=== PATIENT | female | born 1965 | race Native Hawaiian/Other Pacific Islander ===

== ENCOUNTER 2017-04-23 07:48 | Outpatient (CLI) | payer OTHER | END 2017-04-23 07:57 | disposition short-term general hospital (02) | LOC: AMB 07:48 | DX: R06.02 Shortness of breath (principal) | CPT/HCPCS: A0425; A0427 ==

== ENCOUNTER 2017-04-23 07:57 | Emergency (ER) | payer OTHER ==
[~2017-04-23] VITALS: Ht 162.6 cm; Wt 45.4 kg
[2017-04-23 08:00] VITALS: TEMP 97.3
[2017-04-23 08:48] LABS: PLATELET COUNT 209 K/uL (152-353)
[2017-04-23 09:14] LABS: POTASSIUM 3.8 mmol/L (3.6-5.2); SODIUM 140 mmol/L (136-145)
[2017-04-23 12:05] VITALS: BP 147/81
== END 2017-04-23 12:05 | disposition home or self-care (01) ==
LOC: ED 07:57
PROVIDERS: Family Medicine
DX: J44.1 Chronic obstructive pulmonary disease with (acute) exacerbation (principal)
CPT/HCPCS: 36415; 80053; 82550; 84484; 85027; 87804; 93005; 94664; 96374; 96375; 99284; J1885; J2930

== ENCOUNTER 2017-07-20 09:55 | Inpatient (IN) | payer OTHER ==
[2017-07-20] VITALS (15 sets, daily range): BP systolic 118–169; BP diastolic 70–101; TEMP 97.5–99.6; Ht 162.6 cm; Wt 52.8 kg
[~2017-07-20] VITALS: Ht 162.6 cm; Wt 52.8 kg
[2017-07-20 10:43] LABS: PLATELET COUNT 392 K/uL (152-353)
[2017-07-20 10:47] LABS: POTASSIUM 2.7 mmol/L (3.6-5.2)
--- NOTE | 2017-07-20 12:46 | NUR ---
REPORT RECEIVED FROM Sabrina CROCKER RN IN ED
--- NOTE | 2017-07-20 12:50 | NUR ---
PT ARRIVED VIA STRETCHER AT THIS TIME. PT IS AWAKE, ALERT, AND ORIENTED X4. PT IS IN NO DISTRESS. PT WAS ORIENTED TO ROOM, CALL LIGHT AND ICU RULES. THERE IS A 22G IV TO THE RAC THAT IS PATENT AND INTACT. ADMISSION ASSESSMENT WAS DONE AT THIS TIME CHARTED. PT WAS PLACED ON ICU MONITORS AND BED WAS LOOCKED AND IN LOWEST POSITION. WILL CONTINUE TO CLOSELY MONITOR.
--- NOTE | 2017-07-20 16:50 | NUR ---
PT STATES SHE IS REALLY ANXIOUS AT THIS TIME AND HAVING TROUBLE BREATHING. RT AT BEDSIDE. BRAD MENDOZA NOTIFIED AND ATIVAN 1 MG IV ORDERED AT THIS TIME. RT CHANGED PT'S OXYGEN TO VENTI-MASK 35% FIO2
--- NOTE | 2017-07-20 22:06 | NUR ---
PT AWAKE IN POSITION OF COMFORT, DENIES ANY NEEDS AT THIS TIME, IV INTACT WITH FLUID ONGOING, VENTI MASK IN USE, NET SOLUTIONS ARCHITECT IN USE, NO S/S OF PAIN OR ACUTE DISTRESS. ADX NIGHTLY MEDICATION SEEN ON APR, WILL MONITOR, RAILS UP, BED IN LOW POSITION, ENCOURAGED TO CALL NEEDED. PT EDUCATED ABOUT THE NEED FOR URINE SAMPLE FOR UA, ALSO CLINICAL SPECIALIST MEDICAL DEVICE ANSWERED SOME QUESTIONS PT HAD ABOUT HER CURRENT PLAN OF CARE.
--- NOTE | 2017-07-20 23:56 | NUR ---
PT AWAKE WITH NO ACUTE DISTRESS NOTED, JUST USED BSC WITH SOME WEAKNESS AND SOB NOTED DUE TO EXERTION/ACTIVITY, RESP RATE 26, 22G IV INTACT TO R AC WITH NS INFUSING AT 125ML/HR, C/O COUGH AND REQUESTS SOMETHING FOR IT. DIRECTOR RECORDS MANAGEMENT DOES NOTE A VERY FREQUENT COUGH AT THIS TIME THAT IS PRODUCTIVE AT TIMES. ADX TUSSINEX 5ML PO PRN FOR COUGH. PAYLOADER MACHINE OPERATOR IN USE, VITALS BEING MONITORED, WILL MONITOR CLOSELY, RAILS UP, BED IN LOW POSITION. PT COLLECTED UA VIA CLEAN CATCH, APPROX 40ML CLEAR YELLOW URINE SENT TO LAB FOR UA PER ORDERS.
[2017-07-21] VITALS (23 sets, daily range): BP systolic 125–1476; BP diastolic 69–107; TEMP 97.7–98.7
--- NOTE | 2017-07-21 02:00 | NUR ---
PT RESTING IN POSITION OF COMFORT WITH EYES CLOSED AND HOB ELEVATED, NO S/S OF PAIN OR DISTRESS NOTED, RESP RATE 24 NONLABORED, VENTI MASK IN USE WITH FIO2 OF 35% AND O2 SAT OF 98%, 22G IV INTACT TO R AC WITH NS INFUSING AT 125ML/HR, NO COUGHING NOTED AT THIS TIME, LABORER ELECTROPLATING IN USE, VITALS BEING MONITORED, WILL MONITOR CLOSELY, RAILS UP, BED IN LOW POSITION.
--- NOTE | 2017-07-21 04:10 | NUR ---
RESTING WITH EYES CLOSED, NO S/S OF PAIN OR DISTRESS NOTED, IV INTACT WITH FLUID ONGOING, RESP RATE NONLABORED, VENTI MASK IN USE WITH FIO22 OF 35%, RESP RATE 22-24, INTEGRATION TECHNICIAN IN USE, VITALS BEING MONITORED, WILL MONITOR CLOSELY, RAILS UP, BED IN LOW POSITION.
--- NOTE | 2017-07-21 05:30 | NUR ---
PT STATES SHE IS FEELING TIGHT AND SHE HAS STARTED TO COUGH ALOT, REQUESTING A BREATHING TREATMENT. SPOKE WITH DR. SWIFT IN ER. CHANGE DUO NEB TREATMENTS TO Q 4 HOURS AND PRN. T. O. R& V DR. SWIFT/[place] HARDEN RN. 0645 PT GOT NEB TREATMENT AND STATES SHE IS FEELING BETTER, NO DISTRESS NOTED. IV INTACT, FLUID ONGOING, NO DISTRESS NOTED, WILL MONITOR, RAILS UP, BED IN LOW POSITION, VENTI MASK IN USE.
[2017-07-21 06:07] LABS: POTASSIUM 3.8 mmol/L (3.6-5.2)
[2017-07-21 06:19] LABS: PLATELET COUNT 343 K/uL (152-353)
--- NOTE | 2017-07-21 09:42 | NUR ---
LUIS MIGUEL WU, ASSOCIATE BROKER AT BEDSIDE ROUNDING ON PT. NO NEW ORDERS GIVEN AT THIS TIME
--- NOTE | 2017-07-21 11:05 | NUR ---
PT RESTING QUIETLY WITH EYES CLOSED. NAD NOTED. WILL CONTINUE TO MONITOR.
--- NOTE | 2017-07-21 11:22 | NUR ---
RESPIRATORY AT BEDSIDE GIVING SCHEDULED BREATHING TX
--- NOTE | 2017-07-21 12:35 | NUR ---
PT SWITCHED TO NC 3LPM. SATS 93% WILL CONTINUE TO MONITOR.
--- NOTE | 2017-07-21 13:05 | NUR ---
PT SITTING UP IN BED AWAKE AND ALERT WATCHING TV. NO DISTRESS NOTED. PT'S O2 SAT IS 97% ON 3 LPM VIA NC AT THIS TIME. PT VOICES NO COMPLAINTS. WILL CONTINUE TO MONITOR.
--- NOTE | 2017-07-21 14:03 | NUR ---
DECREASED O2 TO 2LPM VIA NC. O2 SAT 99% AT THIS TIME AND NO DISTRESS NOTED.
--- NOTE | 2017-07-21 22:00 | NUR ---
AWAKE WATCHING TV WITH NO S/S OF PAIN OR DISTRESS NOTED, RESP RATE NONLABORED, PRODUCTIVE COUGH NOTED AT TIMES, VENTI MASK IN USE WITH FIO2 OF 35%, SKIN WARM AND DRY, RADIAL PULSES INTACT, 22G IV INTACT TO R AC WITH NO PROBLEMS NOTED, ENTERPRISE SECURITY ARCHITECT IN USE, VITAL BEING MONITORED, PT DENIES ANY PROBLEMS AT THIS TIME, RAILS UP, BED IN LOW POSITION. PT UP TO BSC TO URINATE, NOTE PT BECOMES VERY SOB WITH ACTIVITY, PT NOW BACK IN BED.
[2017-07-22] VITALS (23 sets, daily range): BP systolic 125–177; BP diastolic 70–99; TEMP 98–98.7
--- NOTE | 2017-07-22 00:26 | NUR ---
PT AWAKE WATCHING TV WITH NO DISTRESS NOTED, DENIES ANY NEEDS, RESP RATE 20-22 NONLABORED, IV LOCK INTACT TO R AC WITH NO PROBLEMS NOTED, VENTI MASK IN USE, SERVICE GREETER IN USE, VITALS BEING MONITORED, RAILS UP, BED IN LOW POSITION.
--- NOTE | 2017-07-22 02:04 | NUR ---
RESTING QUIETLY IN BED WITH EYES CLOSED, NO S/S OF PAIN OR DISTRESS NOTED, 22G IV INTACT TO R AC WITH NO PROBLEMS NOTED TO SITE, VENTI MASK IN USE, RESP RATE NONLABORED, GEODETIC COMPUTATOR IN USE, VITALS BEING MONITORED, WILL CONTINUE TO MONITOR CLOSELY, RAILS UP, BED IN LOW POSITION.
--- NOTE | 2017-07-22 03:24 | NUR ---
PT AWAKE SITTING UP IN BED IN TRIPOD POSITION, PT HAD COUGHING SPELL AND C/O BEING VERY SORE FROM COUGHING. BREATHTING MODERATLY LABORED DURING AND AFTER COUGHING SPELL. PT STATES SHE IS NOT REALLY COUGHING ANYTHING UP NOW. ENCOURAGED PT TO DRINK WATER TO THIN SPUTUM, PT ACKNOWLEDGES UNDERSTANDING. O2 SAT 95-93% ON VENTI MASK WITH FIO2 OF 35%.
--- NOTE | 2017-07-22 03:40 | NUR ---
SPOKE WITH DR. URENA ON PHONE ABOUT PT'S CONTINUED COUGHING SPELL AND ABOUT HER BEING SORE IN CHEST FROM COUGHING. NEW ORDER FOR MORPHINE 1 MG IVP Q 4 PRN FOR AIR HUNGER. T.O. R&V DR. URENA/JEN KISER.
--- NOTE | 2017-07-22 04:11 | NUR ---
RESP RATE 24-26 WITH INCREASED RESPIRATORY EFFORT ALONG WITH COUGHING SPELL. PT C/O BEING SORE OVER RIBS/UPPER ABD, STATES SORENESS IS INTERMITTEN AND CAUSED BY HER COUGHING. O2 SAT 96% VENTI MASK IN USE. GIVEN MORPHINE 1MG IVP PRN AT THIS TIME, SKIN WARM AND DRY, RADIAL PULSES INTACT, 22G IV LOCK INTACT TO R AC WITH NO PROBLEMS NOTED TO SITE. 0418 PT APPEARS TO BE IN LESS DISTRESS SINCE ADX OF MORPHINE PRN. RESP RATE NONLABORED AND NO COUGHING NOTED, PT DOES STATE SHE FEELS BETTER AND THAT THE SORENESS FROM COUGHING IS NOW "JUST SORE", VERY LITTLE EXTRA RESP EFFORT NOTED COMPARED TO BEFORE THE MORPHINE WAS GIVEN. PT NOW WATCHING TV AND DENIES ANY NEEDS, RAILS UP, BED IN LOW POSITION. VENTI MASK IN USE WITH FIO2 OF 35% AND O2 SAT OF 98%. VITALS BEING MONITORED
[2017-07-22 07:46] LABS: POTASSIUM 2.7 mmol/L (3.6-5.2)
[2017-07-22 08:37] LABS: PLATELET COUNT 374 K/uL (152-353)
--- NOTE | 2017-07-22 08:40 | NUR ---
SET UP BREAKFAST TRAY AND PROVIDED WARM CLOTH TO WASH OFF FACE AND HANDS.
--- NOTE | 2017-07-22 09:30 | NUR ---
UP TO BEDSIDE COMMODE. ASSISTED WITH PARTIAL BATH AT THIS TIME.
--- NOTE | 2017-07-22 10:02 | NUR ---
RUBIA MENDOZAP AT BEDSIDE TO EXAMINE PATIENT. ABNORMAL LABS REPORTED.
--- NOTE | 2017-07-22 13:38 | NUR ---
PT RESTING IN BED HOB UP SLEEPING RESP RATE 22 SAT 97% BREATHING EASIER NOW, PT SLEEPING, SLEPT THROUGH LUNCH WILL FEED PT WHEN SHE AWAKENS.
--- NOTE | 2017-07-22 14:20 | NUR ---
WOKE UP AND REQUESTED A HAM AND CHEESE SANDWICH AND SWEET TEA. CAFETERIA NOTIFIED.
--- NOTE | 2017-07-22 16:55 | NUR ---
BRUSHED AND BRAIDED PATIENTS HAIR. (HAIR CLIP WAS HURTING SO I OFFERED TO BRAID HER HAIR) MICHAEL JALLOH CHANGED D/T STRESS INCONTIENCE. STANDING AT SIDE OF BED AND BEGAN COUGHING. DIFFICULTY TOLERATING ACTIVITY NOTED. CURRENTLY ON 3L VIA NC AND SLOW TO RAISE O2 SATS TO 92% FROM 83% RESPIRATORY ATTEMPTED TO PLACE BACK ON VENTI MASK FOR A FEW MINUTES BUT SHE REFUSED AND STATES, "I AM OK AND STARTING TO CALM DOWN."
--- NOTE | 2017-07-22 18:00 | NUR ---
DINNER TRAY TAKEN TO BEDSIDE. REFUSED TO EAT AT THIS TIME. ASKED ONLY TO KEEP THE FRUIT AND TEA FROM SUPPER TRAY. HAS 1/2 A HAM AND CHEESE SANDWICH AND PLANS TO EAT IT LATER THIS EVENING.
--- NOTE | 2017-07-22 22:32 | NUR ---
ATIVAN IV WAS EFFECTIVE. PT HAS BEEN RESTING WITH HER EYES CLOSED SINCE ADM OF MEDICATION. O2 SATS ARE 99 AND 100 PERCENT. COUGHING SUBSIDED AT PRESENT.
[2017-07-23] VITALS (20 sets, daily range): BP systolic 132–177; BP diastolic 70–101; TEMP 98.1–98.7
--- NOTE | 2017-07-23 02:57 | NUR ---
PT CONTINUES TO REST WITH EYES CLOSED. PT WITH DECREASE IN COUGHING. RESP ARE EVEN AND UNLABORED. O2 SATS 99 TO 100 PERCENT WITH 02 AT 3L NASAL CANNULA.
--- NOTE | 2017-07-23 07:00 | NUR ---
REPORT FROM PM STAFF. PT WITH DRY HACKY COUGH. PT A&O X 4.COLOR PINK,O2 SATS 99% ON O2 AT 3L/NC.
[2017-07-23 08:04] LABS: PLATELET COUNT 479 K/uL (152-353)
--- NOTE | 2017-07-23 08:26 | NUR ---
PT WITH INCREASED COUGHING,CHEST SOUNDS 'TIGHT' AFTER A HHN TX PER RT.HR 115. PT MEDICATED WITH MUCINEX & TUSSIONEX PER 'S ORDER.
--- NOTE | 2017-07-23 09:30 | NUR ---
PT RESTING WITH EYES CLOSED.HR DOWN TO 81,NSR. MUCH LESS COUGHING .
--- NOTE | 2017-07-23 11:48 | NUR ---
PT C/O ACHES ALL OVER, PT WITH DRY HARSH TIGHT SOUNDING COUGH REPORTED TO XANDER AVINA/DISHA/HOSPITALIST.
--- NOTE | 2017-07-23 12:37 | NUR ---
PT MENTIONED 'ALL OVER ACHES''FROM COUGHING' PER PT. REPORTED TO LUIS MIGUEL BARKLEYP.
--- NOTE | 2017-07-23 14:40 | NUR ---
PT MEDICATED WITH TORADOL 30MG IV FOR ACHES & PAINS
--- NOTE | 2017-07-23 15:55 | NUR ---
PT CONCERNED ABOUT HER FINANCIAL STATUS.'UNABLE TO PAY' FOR HER MEDS. JUD JURADO PRACTICE PROFESSIONAL IN TO SEE PT.PT RESTING IN [place], WATCHING TV. PT WITH 'TIGHT' SOUNDING COUGH AT INTERVALS. MUCH IMPROVED SINCE THIS AM.
--- NOTE | 2017-07-23 17:30 | NUR ---
PT RESTING IN HF,FEEDING DINNER SLOWLY & WATCHING TV. PT CONTINUES TO COUGH AT INTERVALS.
--- NOTE | 2017-07-23 20:02 | NUR ---
PT AWAKE AND ORIENTED SITTING UP IN BED WATCHING TV, DENIES ANY PAIN OR PROBLEMS, NO S/S OF DISTRESS NOTED, IV LOCK INTACT TO R AC, RESP RATE NONLABORED, O2 AT 2LPM VIA NC, CONDUCTOR/ENGINEER IN USE, VITALS BEING MONITORED, LUNGS DIMINISHED TO AUSCULTATION, BS+, RADIAL AND PEDAL PULSES INTACT/EQUAL, WILL CONTINUE TO MONITOR CLOSELY, RAILS UP X3, BED IN LOW POSITION.
--- NOTE | 2017-07-23 22:20 | NUR ---
PT CONTINUES TO WATCH TV WITH NO DISTRESS NOTED, IV LOCK INTACT, RESP RATE NONLABORED, O2 IN USE, VITALS BEING MONITORED, PARTS INSPECTOR IN USE. ASSISTED PT TO WASH HER BACK. PT ALSO GOT UP TO BSC WITH SOME SOB NOTED, WILL MONITOR, RAILS UP, BED IN LOW POSITION.
[2017-07-24] VITALS (16 sets, daily range): BP systolic 131–173; BP diastolic 75–100; TEMP 98–98.3
--- NOTE | 2017-07-24 00:27 | NUR ---
PT AWAKE WATCHING TV WITH NO S/S OF DISTRESS NOTED, IV LOCK INTACT TO R AC, RESP RATE NONLABORED, NONPRODUCTIVE COUGH NOTED AT TIMES, O2 IN USE, BAKING FACTORY WORKER IN USE, VITALS BEING MONITORED, WILL MONITOR CLOSELY, RAILS UP, BED IN LOW POSITION.
--- NOTE | 2017-07-24 03:00 | NUR ---
PT AWAKE AND COUGHING ALOT, STATES THE COUGH IS "DRY" AND THAT SHE IS STILL SORE OVER HER RIBS/ABD FROM COUGHING. GAVE TUSSINEX 5ML PO PRN PER PT REQUEST FOR HER COUGH, WILL MONITOR CLOSELY. 02 SAT 99% ON 3LPM VIA NC.
--- NOTE | 2017-07-24 03:48 | NUR ---
RESTING WITH EYES CLOSED AND NO COUGHING OR DISTRESS NOTED, WILL MONITOR.
--- NOTE | 2017-07-24 04:26 | NUR ---
PT NOW AWAKE AND ORIENTED SITTING UP IN BED WATCHING TV, DENIES ANY NEEDS AT THIS TIME, RESP RATE 20 NONLABORED, O2 AT 3LPM VIA NC, SAFETY BELT INSTALLER IN USE, VITALS BEING MONITORED, NO S/S OF PAIN OR DISTRESS NOTED, 22G IV LOCK INTACT TO R AC WITH NO PROBLEMS NOTED TO SITE, WILL MONITOR, RAILS UP, BED IN LOW POSITION. NO COUGHING NOTED AT THIS TIME.
--- NOTE | 2017-07-24 06:29 | NUR ---
PT RESTING IN BED WITH EYES CLOSED AND NO S/S OF PAIN OR DISTRESS NOTED, IV LOCK INTACT, O2 AT 3LPM VIA NC, RESP RATE NONLABORED, RISK ADJUSTMENT SPECIALIST IN USE, VITALS BEING MONITORED, WILL MONITOR CLOSELY, RAILS UP, BED IN LOW POSITION.
[2017-07-24 06:33] LABS: PLATELET COUNT 437 K/uL (152-353)
--- NOTE | 2017-07-24 07:05 | NUR ---
REPORT FROM [place] HARDEN RN PM SHIFT. PT RESTING QUIETLY WITH EYES CLOSED.
--- NOTE | 2017-07-24 08:45 | NUR ---
PT FED SELF 100% OF MEAL. PT WITH INCREASED COUGHING AT INTERVALS.PT STATES' BUT I'M BETTER'.
--- NOTE | 2017-07-24 10:30 | NUR ---
PT RESTING WITH EYES CLOSED.
--- NOTE | 2017-07-24 11:42 | NUR ---
PT C/O 'ACHES ALL OVER'. PT MEDICATED PER DR'S ORDER.
--- NOTE | 2017-07-24 12:32 | NUR ---
PT SITTING UP FEEDING SELF LUNCH. DR URENA & XANDER DEVI BORING MACHINE OPERATOR DOUBLE END/SCRIBReddy IN TO SEE PT. PT TO BE TRANSFERRED TO MED SURG.
--- NOTE | 2017-07-24 14:42 | NUR ---
REPORT RECEIVED BY MAGDA MUNOZ RN. PT TRANSFERRED TO MS FLOOR RM 1111 VIA W/C. PT SOB ON EXERCION. PRODUCTIVE COUGH NOTED WITH CLEAR FROTHY SPUTUMN. LUNG SOUNDS WHEEZING YOGESH. PT ON O2 AT 3L NC. PT ORIENTED TO ROOM. SR UP X2. CALL LIGHT IN REACH. WILL CONTINUE TO MONITOR. NAD NOTED.
--- NOTE | 2017-07-24 14:43 | NUR ---
REPORT CALLED TO ROD BOWDEN RN.
--- NOTE | 2017-07-24 14:51 | NUR ---
PT TRANSFERRED STABLE ON O2 AT 3L/NC VIA WC TO MED SURG RM 1111.
--- NOTE | 2017-07-24 15:04 | NUR ---
TRANSFER OF PT CALLED TO PT'S DAUGHTER.
--- NOTE | 2017-07-24 15:35 | NUR ---
PT INSTRUCTED ON CALLING FOR ASSISTANCE WHEN NEEDING TO AMBULATE IN ROOM. PT VERBALIZED UNDERSTANDING.
[2017-07-25] VITALS: BP 132/75; TEMP 98.1
[2017-07-25 06:00] VITALS: BP 156/76; TEMP 98.1
[2017-07-25 06:45] LABS: POTASSIUM 3.9 mmol/L (3.6-5.2)
[2017-07-25 07:01] LABS: PLATELET COUNT 436 K/uL (152-353)
[2017-07-25 09:11] VITALS: BP 158/94; TEMP 97.8
[2017-07-25 12:00] VITALS: BP 151/81; TEMP 97.3
[2017-07-25 16:00] VITALS: BP 162/90; TEMP 97.8
[2017-07-25 19:39] VITALS: BP 157/90; TEMP 98.1
[2017-07-26 00:22] VITALS: BP 153/84; TEMP 97.8
[2017-07-26 04:00] VITALS: BP 153/81; TEMP 98.2
[2017-07-26 05:55] LABS: PLATELET COUNT 444 K/uL (152-353)
[2017-07-26 07:16] VITALS: BP 144/88; TEMP 98.3
[2017-07-26 12:00] VITALS: BP 167/88; TEMP 98.1
[2017-07-26 16:03] VITALS: BP 153/89; TEMP 98.2
[2017-07-26 20:00] VITALS: BP 151/83; TEMP 98.1
[2017-07-27] VITALS: BP 154/85; TEMP 98.4
[2017-07-27 04:00] VITALS: BP 113/74; TEMP 98.1
[2017-07-27 06:27] LABS: PLATELET COUNT 427 K/uL (152-353)
[2017-07-27 06:40] LABS: POTASSIUM 3.4 mmol/L (3.6-5.2)
[2017-07-27 08:19] VITALS: BP 155/77; TEMP 98.2
[2017-07-27 12:00] VITALS: BP 143/81; TEMP 98.1
[2017-07-27 16:00] VITALS: BP 162/84; TEMP 98.7
[2017-07-27 20:00] VITALS: BP 160/82; TEMP 98.5
[2017-07-28] VITALS: BP 150/83; TEMP 98.4
[2017-07-28 04:00] VITALS: BP 152/88; TEMP 98.4
[2017-07-28 05:52] LABS: PLATELET COUNT 388 K/uL (152-353)
[2017-07-28 08:00] VITALS: BP 184/92; TEMP 97.6
[2017-07-28 12:00] VITALS: BP 152/83; TEMP 97.8
[2017-07-28 16:00] VITALS: BP 138/73; TEMP 97.8
[2017-07-28 20:22] VITALS: BP 154/77; TEMP 98.2
[2017-07-29] VITALS: BP 151/83; TEMP 97.8
[2017-07-29 04:00] VITALS: BP 129/64; TEMP 97.8
[2017-07-29 05:26] LABS: PLATELET COUNT 383 K/uL (152-353)
[2017-07-29 05:46] LABS: POTASSIUM 3.7 mmol/L (3.6-5.2)
[2017-07-29 08:00] VITALS: BP 146/73; TEMP 98
[2017-07-29 12:00] VITALS: BP 122/68; TEMP 97.6
[2017-07-29 16:00] VITALS: BP 175/91; TEMP 97.8
--- NOTE | 2017-07-29 16:15 | NUR ---
PT C/O CHEST PAIN. DR. GARCIA NOTIFIED. EKG AND CE'S ORDERED. 1700 - GI COCKTAIL ADMINISTERED AT THIS TIME. PT STATES SHE NO LONGER HAS CHEST PAIN. 1744 - DR. GARCIA NOTIFIED OF PT'S STATUS AND EKG AND LAB RESULTS. NO FURTHER ORDERS GIVEN.
[2017-07-29 20:11] VITALS: BP 144/78; TEMP 98.4
[2017-07-30 00:27] VITALS: BP 181/79; TEMP 98.3
[2017-07-30 04:00] VITALS: BP 139/75; TEMP 98.8
[2017-07-30 06:32] LABS: POTASSIUM 3.2 mmol/L (3.6-5.2)
[2017-07-30 07:33] LABS: PLATELET COUNT 415 K/uL (152-353)
[2017-07-30 08:00] VITALS: BP 117/69; TEMP 98.7
--- NOTE | 2017-07-30 13:05 | NUR ---
DISCHARGE INSTRUCTIONS GIVEN. PT GIVEN A LIST OF AVAILABLE RESOURCES TO HELP WITH MEDICATIONS AND MEDICAL NEEDS. PT UNDERSTANDS HER MEDICATION REGIMEN. PTS DAUGHTER AT SIDE. DAUGHTER DID NOT BRING PTS OXYGEN TANK. PT LEFT VIA WC. NAD NOTED.
== END 2017-07-30 13:05 | disposition home or self-care (01) | DRG 178 ==
LOC: ED 09:55 → ICU 11:40 → MED/SURG 11:40 → ICU 22:14 → MED/SURG 07-24 15:31
PROVIDERS: Nurse Practitioner Family
DX: J15.8 Pneumonia due to other specified bacteria (principal); J44.1 Chronic obstructive pulmonary disease with (acute) exacerbation; F17.210 Nicotine dependence, cigarettes, uncomplicated
CPT/HCPCS: 36415; 36600; 80053; 81000; 82550; 82607; 82728; 82747; 82805; 82948; 82962; 83540; 83550; 83735; 83880; 84484; 85007; 85027; 85379; 86140; 87040; 87070; 87077; 87185; 87186; 87205; 93005; 93306; 94640; 94664; 94668; 94760; 96372; 96374; 99284; J0456; J0696; J1650; J1815; J1885; J1956; J2060; J2270; J2405; J2920; J2930; J3475; J3480; J3490; Q9963